=== PATIENT | male | born 1970 | race Caucasian/White ===

== ENCOUNTER → 2016-10-05 | Outpatient (CLI) | payer OTHER | LOC: CT 09-20 09:30 | DX: Z00.00 Encounter for general adult medical examination without abnormal findings (principal); R93.8 Abnormal findings on diagnostic imaging of other specified body structures; J30.9 Allergic rhinitis, unspecified; F41.9 Anxiety disorder, unspecified; M19.90 Unspecified osteoarthritis, unspecified site; M51.36 Other intervertebral disc degeneration, lumbar region; M51.26 Other intervertebral disc displacement, lumbar region; M54.16 Radiculopathy, lumbar region; R06.02 Shortness of breath; Z72.0 Tobacco use; R91.8 Other nonspecific abnormal finding of lung field | CPT/HCPCS: 71250 ==

== ENCOUNTER → 2016-12-01 | Outpatient (CLI) | payer OTHER | LOC: HEART 5 10-06 08:00 | DX: R07.9 Chest pain, unspecified (principal); R06.02 Shortness of breath | CPT/HCPCS: 78452; 93306; A9502; J2785 ==

== ENCOUNTER → 2020-08-26 | Outpatient (CLI) | payer OTHER | LOC: US 08-25 10:30 | DX: R10.13 Epigastric pain (principal) | CPT/HCPCS: 76705 ==

== ENCOUNTER → 2021-01-07 | Outpatient (CLI) | payer OTHER | LOC: EMI 09:00 | DX: G40.409 Other generalized epilepsy and epileptic syndromes, not intractable, without status epilepticus (principal); J32.9 Chronic sinusitis, unspecified | CPT/HCPCS: 70553; A9577 ==

== ENCOUNTER → 2021-03-31 | Outpatient (CLI) | payer OTHER ==
[~2021-03-31] MED LIST: ALBUTEROL SULFATE INH; BUPRENORPHIN-N1 EACH SL; GABAPENTIN600 MG PO; MOBIC7.5 MG PO; SYMBICORT 160-1 INHA INH; TIZANIDINE HCL4 MG PO
== END ==
LOC: OPSV2 03-26 11:00
DX: Z01.818 Encounter for other preprocedural examination (principal); R91.1 Solitary pulmonary nodule; M65.331 Trigger finger, right middle finger
CPT/HCPCS: 71046; 93005

== ENCOUNTER → 2021-04-08 | Day surgery (SDC) | payer OTHER ==
[~2021-04-08] MED LIST changes: +TORADOL 10 MG T10 MG PO
== END | disposition home or self-care (01) ==
LOC: OR 05:56
DX: M65.331 Trigger finger, right middle finger (principal); J44.9 Chronic obstructive pulmonary disease, unspecified; Z98.52 Vasectomy status; Z88.0 Allergy status to penicillin; F17.210 Nicotine dependence, cigarettes, uncomplicated; Z20.822 Contact with and (suspected) exposure to COVID-19; Z88.8 Allergy status to other drugs, medicaments and biological substances
CPT/HCPCS: J1100; J2001; J2250; J2405; J2704; J7120

== ENCOUNTER → 2021-04-29 | Outpatient (CLI) | payer OTHER | LOC: HEART 5 13:57 | DX: R00.1 Bradycardia, unspecified (principal) ==

== ENCOUNTER → 2022-02-10 | Outpatient (CLI) | payer OTHER | LOC: KOH-I 09:30 | DX: M51.36 Other intervertebral disc degeneration, lumbar region (principal); M51.27 Other intervertebral disc displacement, lumbosacral region | CPT/HCPCS: 72148 ==